=== PATIENT | female | born 1970 | race Two or more races ===

== ENCOUNTER 2024-11-06 15:18 | Emergency (ER) | payer OTHER ==
[~2024-11-06] VITALS: Ht 157.5 cm; Wt 73.5 kg
[2024-11-06] MEDS ORDERED: KETOROLAC TROMETHAMINE 60 MG VIAL IM ONE (18:15)
[2024-11-06] MEDS ORDERED: DEXAMETHASONE SODIUM PHOSPHATE 4 MG/ML VIAL IM ONE (18:15)
[2024-11-06] MEDS ORDERED: DICLOFENAC SODI75 MG PO (18:18)
== END 2024-11-06 18:47 | disposition home or self-care (01) ==
LOC: ER 15:20
DX: M54.50 Low back pain, unspecified (principal); M54.2 Cervicalgia; M45.9 Ankylosing spondylitis of unspecified sites in spine; Z88.2 Allergy status to sulfonamides; Z91.041 Radiographic dye allergy status